=== PATIENT | female | born 1950 | race Caucasian/White ===

== ENCOUNTER 2018-01-02 09:05 | Inpatient (IN) | payer OTHER, MEDICAID ==
[~2018-01-02] VITALS: Ht 157.5 cm; Wt 56.6 kg
[2018-01-02] MEDS ORDERED: SODIUM CHLORIDE 0.9% 1,000 ML IV ONE (09:43)
[2018-01-02] MEDS ORDERED: cloNIDine HCL 0.1 MG TAB PO ONE ×2 (09:45)
[2018-01-02] MEDS ORDERED: LORazepam 2MG/ML-1ML VIAL IV ONE (09:45)
[2018-01-02 10:04] LABS: Urine Bacteria MOD /hpf (None Seen); Urine Blood 3+ /uL (Negative); Urine Mucus FEW (None Seen); Urine Specific Gravity 1.018 (1.001-1.035); Urine WBC 14 /hpf (0 - 5)
[2018-01-02 10:09] LABS: Basophils # (auto) 0.1 uL; Basophils % (auto) 0.9 % (0.0-2.0); Eosinophils # (auto) 0.1 uL; Eosinophils % (auto) 1.2 % (0.0-7.0); Hematocrit 49.8 % (36.0-46.0); Hemoglobin 16.9 g/dL (12.2-16.2); Lymphocytes # (auto) 1.1 uL; Lymphocytes % (auto) 11.7 % (10.0-50.0); Mean Corpuscular Hemoglobin 30.1 pg (28.0-32.0); Mean Corpuscular Hgb Conc. 33.8 g/dL (32.0-36.0); Mean Corpuscular Volume 88.9 fL (80.0-100.0); Monocytes # (auto) 0.4 uL; Monocytes % (auto) 4.4 % (0.0-12.0); Neutrophils # (auto) 7.8 uL; Neutrophils % (auto) 81.8 % (37.0-80.0); Platelet Count (auto) 239 10^3/uL (140-450); Red Cell Distribution Width 13.3 % (11.8-14.3); White Blood Cell 9.5 10^3/uL (4.4-10.8)
[2018-01-02 10:35] LABS: Alanine Aminotransferase 27 U/L (13-56); Albumin 4.1 g/dL (3.4-5.0); Anion Gap 8 (5-15); Aspartate Aminotransferase 25 U/L (15-37); BUN/Creatinine Ratio 17.7; Blood Urea Nitrogen 14 mg/dL (7-18); Calcium 9.2 mg/dL (8.5-10.1); Carbon Dioxide 27 mmol/L (21-32); Chloride 104 mmol/L (98-107); GFR African American 94 mL/min; GFR Non-African American 77 mL/min; Glucose 109 mg/dL (74-106); Potassium 3.7 mmol/L (3.5-5.1); Sodium 139 mmol/L (136-145)
[2018-01-02 10:39] LABS: Alkaline Phosphatase 94 U/L (45-117); Bilirubin, Total 0.5 mg/dL (0.2-1.0)
[2018-01-02] MEDS ORDERED: cefTRIAXone 1GM/50ML D5W 50 ML IV ONE (12:00)
[2018-01-02] MEDS ORDERED: hydrOXYzine 25 MG TAB or CAP PO PRN (12:30)
[2018-01-02] MEDS ORDERED: LEVOFLOXACIN 500MG 100 ML IV ONE (12:30)
[2018-01-02] MEDS ORDERED: ACETAMINOPHEN 325 MG TAB PO PRN (12:45)
[2018-01-02] MEDS ORDERED: MORPHINE SULFATE 4 MG/ML SYR/VIAL IV PRN (12:45)
[2018-01-02] MEDS ORDERED: DOCUSATE SOD 100 MG CAP PO PRN (12:45)
[2018-01-02] MEDS ORDERED: NITROGLYCERIN 0.4 MG SL TAB SL PRN (12:45)
[2018-01-02] MEDS ORDERED: ONDANSETRON HCL 4 MG/2 ML VIAL IV PRN (12:45)
[2018-01-02] MEDS ORDERED: HYDROcodone-ACET 5/325MG TAB PO PRN (12:45)
[2018-01-02] MEDS: SODIUM CHLORIDE 0.9% 1,000 ML IV SCH (13:41)
[2018-01-02] MEDS: ATORVASTATIN 20 MG TAB PO SCH (20:50)
[2018-01-02 22:00] VITALS: BP 165/116
[2018-01-02 22:30] VITALS: BP 160/112
[2018-01-02] MEDS: TEMAZEPAM 15 MG CAP PO PRN (22:42)
[2018-01-02] MEDS: cloNIDine HCL 0.1 MG TAB PO PRN (22:54)
[2018-01-03] MEDS: SODIUM CHLORIDE 0.9% 1,000 ML IV SCH ×2 (04:53→21:29)
[2018-01-03 05:15] VITALS: BP 155/85
[2018-01-03] MEDS: cloNIDine HCL 0.1 MG TAB PO PRN (05:20)
[2018-01-03 07:02] LABS: Basophils # (auto) 0.1 uL; Basophils % (auto) 1.3 % (0.0-2.0); Eosinophils # (auto) 0.2 uL; Eosinophils % (auto) 3.7 % (0.0-7.0); Hematocrit 47.7 % (36.0-46.0); Hemoglobin 16.2 g/dL (12.2-16.2); Lymphocytes # (auto) 1.7 uL; Lymphocytes % (auto) 29.7 % (10.0-50.0); Mean Corpuscular Hemoglobin 30.4 pg (28.0-32.0); Mean Corpuscular Hgb Conc. 33.9 g/dL (32.0-36.0); Mean Corpuscular Volume 89.5 fL (80.0-100.0); Monocytes # (auto) 0.4 uL; Monocytes % (auto) 7.7 % (0.0-12.0); Neutrophils # (auto) 3.4 uL; Neutrophils % (auto) 57.6 % (37.0-80.0); Nucleated Red Blood Cells % 0.4 %; Platelet Count (auto) 268 10^3/uL (140-450); Red Blood Cells 5.33 10^6/uL (4.0-5.20); Red Cell Distribution Width 13.4 % (11.8-14.3); White Blood Cell 5.8 10^3/uL (4.4-10.8)
[2018-01-03 07:13] LABS: Albumin 3.8 g/dL (3.4-5.0); BUN/Creatinine Ratio 12.8; Calcium 9.1 mg/dL (8.5-10.1); Potassium 3.7 mmol/L (3.5-5.1)
[2018-01-03 07:16] LABS: Bilirubin, Total 0.7 mg/dL (0.2-1.0); Total Protein 7.6 g/dL (6.4-8.2)
[2018-01-03 09:00] VITALS: BP 129/83
[2018-01-03] MEDS: MULTIPLE VITAMIN TAB PO SCH (10:17)
[2018-01-03] MEDS: LEVOFLOXACIN 500MG 100 ML IV SCH (10:18)
[2018-01-03 12:46] VITALS: BP 140/95
[2018-01-03 16:13] VITALS: BP 131/81
[2018-01-03] MEDS ORDERED: HYDR1CAP27 (17:37)
[2018-01-03] MEDS ORDERED: ALBUAER3 (17:37)
[2018-01-03] MEDS ORDERED: LOVA20TA4 (17:37)
[2018-01-03] MEDS ORDERED: ASPI1TAB19 (17:37)
[2018-01-03] MEDS ORDERED: BUSP10TA90 (17:37)
[2018-01-03] MEDS: ATORVASTATIN 20 MG TAB PO SCH (21:29)
[2018-01-03] MEDS: TEMAZEPAM 15 MG CAP PO PRN (21:34)
[2018-01-03 22:00] VITALS: BP 133/92
[2018-01-04 05:00] VITALS: BP 157/95
[2018-01-04 08:08] VITALS: BP 154/85
[2018-01-04] MEDS ORDERED: ALPRAZolam 0.25 MG TAB PO ONE (08:30)
[2018-01-04] MEDS: MULTIPLE VITAMIN TAB PO SCH (08:59)
[2018-01-04] MEDS: LEVOFLOXACIN 500MG 100 ML IV SCH (09:00)
[2018-01-04 13:00] VITALS: BP 159/89
[2018-01-04] MEDS: SODIUM CHLORIDE 0.9% 1,000 ML IV SCH (14:35)
[2018-01-04 16:40] VITALS: BP 147/96
[2018-01-04 20:00] VITALS: BP 157/105
[2018-01-04 22:00] VITALS: BP 157/105
[2018-01-04] MEDS: ATORVASTATIN 20 MG TAB PO SCH (22:29)
[2018-01-04] MEDS: cloNIDine HCL 0.1 MG TAB PO PRN (22:30)
[2018-01-05 05:30] VITALS: BP 142/91
[2018-01-05] MEDS: SODIUM CHLORIDE 0.9% 1,000 ML IV SCH (07:15)
[2018-01-05 09:00] VITALS: BP_SYST 141; BP_SYST 147; BP_DIAS 83; BP_DIAS 85
[2018-01-05] MEDS: MULTIPLE VITAMIN TAB PO SCH (09:20)
[2018-01-05] MEDS: LEVOFLOXACIN 500MG 100 ML IV SCH (09:20)
[2018-01-05] MEDS: cloNIDine HCL 0.1 MG TAB PO PRN (12:22)
[2018-01-05 13:00] VITALS: BP 159/106
[2018-01-05 16:29] VITALS: BP 156/106
[2018-01-05 17:49] VITALS: BP 137/87
[2018-01-05] MEDS ORDERED: TAMSULOSIN HYDROCHLORIDE 0.4 MG CAP PO SCH (18:00)
== END 2018-01-05 17:30 | disposition home or self-care (01) | DRG 683 ==
LOC: ER 09:05 → TELE 09:06 → TELE-WESTW 21:35
PROVIDERS: ADMIT Internal Medicine; ATTEND Internal Medicine
DX: I12.9 Hypertensive chronic kidney disease with stage 1 through stage 4 chronic kidney disease, or unspecified chronic kidney disease (principal); N13.6 Pyonephrosis; R31.9 Hematuria, unspecified; F41.9 Anxiety disorder, unspecified; J43.9 Emphysema, unspecified; K57.30 Diverticulosis of large intestine without perforation or abscess without bleeding; D75.1 Secondary polycythemia; E78.5 Hyperlipidemia, unspecified; I70.8 Atherosclerosis of other arteries; Z79.899 Other long term (current) drug therapy; Z87.891 Personal history of nicotine dependence; Z88.8 Allergy status to other drugs, medicaments and biological substances; Z82.49 Family history of ischemic heart disease and other diseases of the circulatory system; Z82.61 Family history of arthritis; Z79.82 Long term (current) use of aspirin
CPT/HCPCS: 36415; 71045; 74018; 74176; 76700; 80053; 81001; 83880; 84484; 85025; 87086; 93005; 93306; 96361; 96365; 96367; G0378; J0696; J1956